=== PATIENT | female | born 1965 | race Caucasian/White ===

== ENCOUNTER → 2019-03-04 | Outpatient (CLI) | payer BC ==
[~2019-03-04] MED LIST: IBUP-15; NITR-65 PO; PHEN-640 PO; SIMV10TA3 PO; symbicort inhaler; vitamin d
--- NOTE | 2019-03-04 16:28 | Diagnostic Imaging Report ---
INDICATION: Left ureteral stone. TIME OF EXAM: 1:39 p.m. COMPARISON: No prior studies are available for comparison. FINDINGS: There are multiple calcific densities in the pelvis. The majority of which likely represent phleboliths. Distal ureteric calculi cannot be entirely excluded. There are calcific densities in the right abdomen, which are indeterminate. These appear to project just below the right renal shadow. Renal shadows are obscured by bowel contents. Bowel gas pattern is nonobstructed. IMPRESSION: Calcific densities in the right abdomen and pelvis, as described. Distal ureteric calculi cannot be entirely excluded, although majority of calcifications seen in the pelvis likely represent phleboliths. Dictated by: Dictated on workstation # [id number]
== END ==
LOC: RAD 13:22
PROVIDERS: ATTEND Urology
DX: N20.1 Calculus of ureter (principal)
CPT/HCPCS: 74018

== ENCOUNTER 2019-03-05 07:56 | Day surgery (SDC) | payer BC ==
[~2019-03-05] VITALS: Ht 157.5 cm; Wt 99.8 kg
[2019-03-05] VITALS (10 sets, daily range): BP systolic 93–144; BP diastolic 58–89
[~2019-03-05 07:56] MED LIST changes: -NITR-65 PO; -PHEN-640 PO; -SIMV10TA3 PO; -symbicort inhaler; -vitamin d
--- NOTE | 2019-03-05 08:01 | Progress Note-Pre Operative ---
Pre-Operative Progress Note H&P Reviewed The H&P was reviewed, patient examined and no changes noted. Date Seen by Provider: Mar 05, 2019 Time Seen by Provider: 08:48 Date H&P Reviewed: Mar 05, 2019 Time H&P Reviewed: 08:48 Pre-Operative Diagnosis: LT DISTAL URETERAL STONE VAMSHI CAMARENA MD Mar 05, 2019 08:01
[2019-03-05] MEDS ORDERED: cefTRIAXone FOR IV USE 1,000 MG in WATER (STERILE) FOR INJECTION 10 ML IV ONE (08:45)
--- NOTE | 2019-03-05 08:49 | Progress Note-Post Operative ---
Post-Operative Progess Note Surgeon (s)/Lime Filter Operator (s) Surgeon VAMSHI CAMARENA MD Lime Filter Operator: NONE Pre-Operative Diagnosis LT DISTAL URETERAL STONE Post-Operative Diagnosis SAME Procedure & Operative Findings Date of Procedure 03/05/19 Procedure Performed/Findings LT URETEROSCOPY WITH STONE BASKET Anesthesia Type GENERAL Estimated Blood Loss Estimated blood loss (mL): NONE Specimens/Packing Specimens Removed STONE FOR ANALYSIS Packing: NONE VAMSHI CAMARENA MD Mar 05, 2019 08:49
[2019-03-05] MEDS ORDERED: vitamin d (08:53)
[2019-03-05] MEDS ORDERED: SIMV10TA3 PO (08:53)
[2019-03-05] MEDS ORDERED: symbicort inhaler (08:53)
[2019-03-05] MEDS ORDERED: LACTATED RINGERS 1,000 ML IV PRN (09:15)
[2019-03-05] MEDS ORDERED: MIDAZOLAM 2 MG/2 ML (VERSED) VIAL ONE (09:34)
[2019-03-05] MEDS ORDERED: fentaNYL INJECTION 100 MCG/2 ML AMP ONE (09:34)
[2019-03-05] MEDS ORDERED: KETOROLAC 30 MG/ML VIAL ONE (09:40)
[2019-03-05] MEDS ORDERED: proPOfol 200 MG/20 ML (DIPRIVAN) VIAL IV ONE ×2 (09:40→10:16)
[2019-03-05] MEDS ORDERED: LIDOCAINE PF 2% 5 ML (XYLOCAINE) VIAL ONE (09:40)
[2019-03-05] MEDS ORDERED: DEXAMETHASONE 10 MG/ML (DECADRON) 1 ML VIAL ONE (09:40)
[2019-03-05] MEDS ORDERED: SEVOFLURANE (ULTANE) 15 ML INHAL SOLN ONE ×2 (09:40→10:16)
[2019-03-05] MEDS ORDERED: FUROSEMIDE 40 MG/4 ML INJ (LASIX) ONE (09:40)
[2019-03-05] MEDS ORDERED: ONDANSETRON 4 MG/2 ML (SDV) Z0FRAN ONE (09:40)
--- NOTE | 2019-03-05 10:07 | Diagnostic Imaging Report ---
INDICATION: Preop, left ureteral stone. EXAMINATION: A KUB was obtained at 0833 hours. COMPARISON: 03/04/2019. FINDINGS: The abdominal bowel gas pattern is unremarkable. There is moderate stool throughout the colon. There are numerous calcifications in the pelvis, some of which appear to be phleboliths. There are no definite calcifications overlying the renal shadows but their detection is limited by overlying stool. IMPRESSION: Prominent stool in the colon with no overt obstruction or ileus. Numerous pelvic calcifications are present which are likely phleboliths. Dictated by: Dictated on workstation # [id number]
--- NOTE | 2019-03-05 10:24 | Discharge Inst-Urology ---
Discharge Inst-Urology Reconcile Patient Problems Problems Reviewed?: Yes Discharge Medications New, Converted, or Re-newed RX: RX on Chart Patient Instructions/Follow Up Plan Please make appointment to been seen in office in 4 weeks. Increase oral fluids for 48 hours and then as needed. Diet and Activity as tolerated. If questions or concerns contact your physician Or seek help at emergency department. VAMSHI CAMARENA MD Mar 05, 2019 10:24
[2019-03-05] MEDS ORDERED: NITR-65 PO (11:09)
[2019-03-05] MEDS ORDERED: PHEN-640 PO (11:10)
--- NOTE | 2019-03-05 14:18 | Anesthesia-General Post-Op ---
General Patient Condition Mental Status/LOC: Same as Preop Cardiovascular: Satisfactory Nausea/Vomiting: Absent Respiratory: Satisfactory Pain: Controlled Complications: Absent Post Op Complications Complications None Follow Up Care/Instructions Patient Instructions None needed. Anesthesia/Patient Condition Patient Condition Patient was seen this morning after the procedure and she was doing well, no complaints, stable vital signs, no apparent adverse anesthesia problems. COY SAENZ DO Mar 05, 2019 14:18
--- NOTE | 2019-03-05 15:40 | OPERATIVE REPORT ---
DATE OF SERVICE: 03/05/2019 PREOPERATIVE DIAGNOSIS: Left distal ureteral stone. POSTOPERATIVE DIAGNOSIS: Left distal ureteral stone. OPERATION PERFORMED: Left ureteroscopy and stone lithotripsy with stone basket. SURGEON: Fredi Camarena MD ANESTHESIA: General. COMPLICATIONS: None. DESCRIPTION OF PROCEDURE: Under satisfactory general anesthesia, the patient in lithotomy position, genitalia were prepped and draped in the usual sterile fashion. Cystoscope was introduced under vision. The bladder inspection was normal except that the left ureteral orifice intramural portion was edematous and swollen with a very sluggish efflux. Using the foroblique lens, I dilated the left ureteral orifice intramural portion. During that process, I have disimpacted and dislodge the stone from the intramural portion to accommodate a 6.9 [place] semirigid ureteroscope. The stone was visualized. It was floating at that time. I elected to basket it directly with a 3-[place] basket and extracted it completely. I went back with ureteroscope to confirm no more fragment and no more stones up to the mid ureter and down again, removed the basket cystoscope to empty the bladder. The patient tolerated the procedure and anesthesia well and was sent to recovery room in stable condition. Job ID: [id number] DocumentID: [id number] Dictated Date: 03/05/2019 11:05:24 Osteopathy Doctor Date: 03/05/2019 15:39:25 Dictated By: FREDI CAMARENA MD
== END 2019-03-05 12:30 | disposition home or self-care (01) ==
LOC: SDC 07:56
PROVIDERS: ATTEND Urology
DX: N20.1 Calculus of ureter (principal); J45.50 Severe persistent asthma, uncomplicated; E78.5 Hyperlipidemia, unspecified; Z79.899 Other long term (current) drug therapy
CPT/HCPCS: 74018; 87081; 88300

== ENCOUNTER 2019-04-11 06:48 | Outpatient (RCR) | payer BC ==
[~2019-04-11 06:48] MED LIST changes: +NITR-65 PO; +PHEN-640 PO; +SIMV10TA3 PO; +symbicort inhaler; +vitamin d
== END 2019-07-10 | disposition home or self-care (01) ==
LOC: LAB 06:48
PROVIDERS: ATTEND Urology
DX: N20.9 Urinary calculus, unspecified (principal)
CPT/HCPCS: 36415; 82140; 82340; 82507; 82570; 83735; 83945; 83986; 84105; 84133; 84300; 84392; 84560

== ENCOUNTER → 2021-03-11 | Outpatient (CLI) | payer BC ==
[~2021-03-11] MED LIST changes: +SIMV10TA26 PO; -SIMV10TA3 PO
--- NOTE | 2021-03-11 10:04 | Diagnostic Imaging Report ---
PROCEDURE: CT abdomen and pelvis without contrast. TECHNIQUE: Multiple contiguous axial images were obtained through the abdomen and pelvis without the use of intravenous contrast. Auto Exposure Controls were utilized during the CT exam to meet ALARA standards for radiation dose reduction. INDICATION: Right posterior pain. COMPARISON: Prior CT of 07/01/2018. FINDINGS: The lung bases are clear. The liver and gallbladder are unremarkable. There is no biliary ductal dilatation. The pancreas and spleen are unremarkable. Both kidneys contain numerous renal sinus cysts. No definite calculus or hydronephrosis is identified. The aorta is nonaneurysmal. No ureteral or bladder calculi are seen. There is no small or large bowel dilatation or evidence of obstruction. No free fluid or fluid collection is seen. The uterus appears to be surgically absent. No abdominal or pelvic lymphadenopathy is identified. IMPRESSION: Essentially unremarkable noncontrast CT of the abdomen and pelvis. No urinary tract calculus or obstruction is identified. Dictated by: Dictated on workstation # [id number]
--- NOTE | 2021-03-11 10:04 | Diagnostic Imaging Report ---
INDICATION: History of kidney stones. TIME OF EXAM: 8:57 AM Correlation is made with prior study from 03/05/2019. Bowel gas pattern is unremarkable. No definite radiopaque urinary tract calculi are seen. Numerous calcifications in the pelvis are again noted suggestive of phleboliths. IMPRESSION: No acute feature detected. Dictated by: Dictated on workstation # [id number]
== END ==
LOC: RAD 08:15
PROVIDERS: ATTEND Urology
DX: R10.9 Unspecified abdominal pain (principal); Z87.442 Personal history of urinary calculi
CPT/HCPCS: 74018; 74176